=== PATIENT | female | born 1940 | race African-American/Black ===

== ENCOUNTER → 2024-12-30 06:26 | Outpatient (REF) | payer OTHER, SELFPAY | LOC: MRI 06:26 | PROVIDERS: ATTENDING PHYSICIAN Family Medicine; FAMILY PHYSICIAN Internal Medicine | DX: Z96.89 Presence of other specified functional implants (principal); K86.89 Other specified diseases of pancreas | CPT/HCPCS: 72072; 72100; 74183; A9575 ==

== ENCOUNTER → 2025-04-13 11:17 | Outpatient (REF) | payer OTHER, SELFPAY | LOC: PAVMRI 11:17 | PROVIDERS: ATTENDING PHYSICIAN Neurological Surgery; FAMILY PHYSICIAN Internal Medicine Gastroenterology | DX: M54.10 Radiculopathy, site unspecified (principal) | CPT/HCPCS: 72148; 76014 ==